=== PATIENT | female | born 1960 | race Caucasian/White ===

== ENCOUNTER 2018-03-31 23:25 | Emergency (ER) | payer OTHER, SELFPAY ==
[2018-03-31 23:26] VITALS: PULSE 68; RESP 18; TEMP 35.6; O2SAT 99; BMI 36.6
--- NOTE | 2018-03-31 23:29 | NURSING ---
PT ASKED TO BE SEATED IN THE WAITING ROOM AFTER THIS RN FINISHED TRIAGING HER TO WHICH SHE REPLIED SHE DOES NOT WANT TO WAIT TO BE SEEN. PT STATES SHE IS LEAVING
== END 2018-03-31 23:30 | disposition left against medical advice (07) ==
LOC: ED 04-01 00:14
PROVIDERS: Emergency Provider Emergency Medicine
DX: R69 Illness, unspecified (principal)

== ENCOUNTER 2021-06-29 17:51 | Inpatient (IN) | payer MEDICAID, SELFPAY ==
[2021-06-29] VITALS (7 sets, daily range): BP systolic 110–127; BP diastolic 77–99; PULSE 104–113; RESP 22–34; TEMP 36.6–37.2; O2SAT 91–97; BMI 41.5
--- NOTE | 2021-06-29 18:00 | EDS_ITS ---
HPI History of Present Illness Chief Complaint: Shortness of Breath Informant: patient and EMS Narrative Narrative: Patient is a 60-year-old male with diagnosis of Covid 14 days ago presenting with confusion and hypoxia. EMS arrived to the patient's house no she was confused, cyanotic and 88% on room air. She is placed on a nonrebreather and did have improvement of her symptoms. Patient states she is been feeling more short of breath lately. She did not have her Covid vaccine. She denies any chest pain. She denies any other acute complaints at this time. [facility] Medical History (Updated 06/29/21 @ 23:[address] Dara Uribe, DO) Non-smoker Obesity Home Medications naproxen 500 mg PO BID PRN #20 tab 09/15/15 [Rx Last Taken Unknown] Allergy/AdvReac Type Severity Reaction Status Date / Time No Known Allergies Allergy Verified 06/29/21 17:57 Family History Other Diabetes Social History Smoking Status: Never smoker ROS ROS ED ROS Narrative Review of systems is limited secondary to patient's confusion Respiratory/Chest Respiratory/Chest: Reports dyspnea EXAM Physical Exam Const Vital Signs: 06/29/21 17:52 06/29/21 18:00 06/29/21 18:23 Temperature 97.8 F Temperature Source Oral Pulse Rate 113 H 111 H Respiratory Rate 29 H 33 H Respiratory Effort Short of Breath Labored Accessory Muscle Use Respiratory Depth Shallow Respiratory Pattern Tachypnea Blood Pressure 119/99 H 127/97 H Blood Pressure Mean 105 107 Pulse Ox 95 95 91 Oxygen Delivery Method Non-Rebreather Venturi Mask Venturi Mask Oxygen Flow Rate (L/min) 12 50 Fraction of Inspired Oxygen (FIO2) 50 06/29/21 19:52 06/29/21 19:53 06/29/21 20:37 Temperature 98.9 F 98.0 F Temperature Source Temporal Oral Pulse Rate 107 H 104 H 105 H Respiratory Rate 34 H 34 H 28 H Respiratory Effort Respiratory Depth Respiratory Pattern Blood Pressure 110/77 110/77 118/82 H Blood Pressure Mean 88 88 94 Pulse Ox 97 97 96 Oxygen Delivery Method Non-Rebreather Non-Rebreather Non-Rebreather Oxygen Flow Rate (L/min) 15 15 15 Fraction of Inspired Oxygen (FIO2) Positive well nourished and well developed General Appearance ED: well developed HEENT Reports moist mucous membranes atraumatic Eyes PERRL and EOMs intact bilaterally Neck supple and no JVD Resp normal respiratory effort Auscultation: diminished lung sounds diffuse Cardio regular rate, regular rhythm and no murmurs GI non-tender and non-distended Palpation: soft Back/Spine normal to inspection Extremity normal to inspection Neuro oriented x3 Sensorium / Orientation: alert and confused Skin Lesions: no lesions Rashes: no rashes MDM MDM MDM Narrative Medical decision making narrative: Patient evaluated for hypoxia and cyanosis as well as confusion in the setting of COVID-19 infection. She had symptoms for 2 weeks. She did not have her Covid vaccine. She does not wear oxygen normally. On arrival patient is requiring 50% FiO2 to maintain O2 saturation of 95% but she does feel improved on oxygen. Her work-up is remarkable for an elevated lactate as well as a leukocytosis of 14.0. I suspect this is all reactive and associated with her hypoxic state prior to arrival and not from a bacterial infection, therefore antibiotics are not given. D-dimer is significantly elevated however patient appears to have an LATOYA with a creatinine of 2.18. We will not have any prior labs to compare to. Patient will be placed on heparin drip empirically and plan for CTA to rule out PE in the morning if kidney function improves. ABG obtained after patient's arrival shows hypoxia and mild respiratory alkalosis but no hypercapnia. Patient inflammatory markers are elevated including her CRP, LDH and fibrinogen. She will be admitted for further respiratory monitoring and treatment. She is given 1st dose of Decadron in the emergency room. Patient is agreeable with this plan of care. Lab Data Attestation: I reviewed the patient's lab results. Labs: Laboratory Results - last 24 hr 06/29/21 06/29/21 06/29/21 18:05 18:05 18:05 WBC 14.0 H RBC 6.24 H Hgb 17.6 H Hct 54.3 H MCV 87.0 MCH 28.2 MCHC 32.4 RDW Std Deviation 43.5 RDW Coeff of Alis 13.6 Plt Count 188 MPV 11.2 Immature Gran % (Auto) 4.100 H Neut % (Auto) 79.7 H Lymph % (Auto) 5.8 L [place] % (Auto) 8.9 Eos % (Auto) 0.6 Baso % (Auto) 0.9 Absolute Neuts (auto) 11.2 H Absolute Lymphs (auto) 0.82 L Nucleated RBC % 0.7 PT INR APTT Fibrinogen 462 H D-Dimer Quant (PE/DVT) > 20.00 H* Sodium 144 Potassium 3.5 Chloride 104 Carbon Dioxide 29.0 Anion Gap 11 BUN 55 H Creatinine 2.18 H Estim Creat Clear Calc 23.11 Est GFR (MDRD) Af Amer 29 L Est GFR (MDRD) Non-Af 24 L BUN/Creatinine Ratio 25.2 H Glucose 199 H Lactic Acid Calcium 9.1 Total Bilirubin 1.50 H AST 26 ALT 53 Alkaline Phosphatase 85 Lactate Dehydrogenase 432 H Total Creatine Kinase 315 H Troponin I High Sens 8 C-React Prot Ext Range 171.00 H Total Protein 8.0 Albumin 3.0 L Globulin 5.0 H Albumin/Globulin Ratio 0.6 L Procalcitonin 06/29/21 06/29/21 06/29/21 18:05 18:05 18:05 WBC RBC Hgb Hct MCV MCH MCHC RDW Std Deviation RDW Coeff of Alis Plt Count MPV Immature Gran % (Auto) Neut % (Auto) Lymph % (Auto) [place] % (Auto) Eos % (Auto) Baso % (Auto) Absolute Neuts (auto) Absolute Lymphs (auto) Nucleated RBC % PT 15.1 H INR 1.3 APTT 24.6 Fibrinogen D-Dimer Quant (PE/DVT) Sodium Potassium Chloride Carbon Dioxide Anion Gap BUN Creatinine Estim Creat Clear Calc Est GFR (MDRD) Af Amer Est GFR (MDRD) Non-Af BUN/Creatinine Ratio Glucose Lactic Acid 3.9 H* Calcium Total Bilirubin AST ALT Alkaline Phosphatase Lactate Dehydrogenase Total Creatine Kinase Troponin I High Sens C-React Prot Ext Range Total Protein Albumin Globulin Albumin/Globulin Ratio Procalcitonin 0.41 H ABG Data ABG results: ABG 06/29/21 18:34 Specimen Type ART Sample Site L Radial pH 7.53 H Bicarbonate Actual 25.4 Total CO2 26 Base Excess 3 H O2 Saturation 88 L O2 % 50 ABG pCO2 30.3 L ABG pO2 47 L Sarthak Test Positive O2 Delivery Device Venti Mask Radiography Chest X-Ray - ED: 1 View, Read by ED Physician, Read by Radiologist and - (Multifocal infiltrate) Diagnostic Testing: Radiology Impression Chest X-Ray 06/29/21 18:43 IMPRESSION: Findings which may be consistent with Covid 19 pneumonia more severe in the left lung Electronically Signed: Tuan Gonzalez MD at 19:36 EDT , Service support , Rhythm Strip Rhythm Strip: Sinus Tach Rate: 110 Ectopy: None EKG Initial EKG: Attestation: I personally reviewed and interpreted this EKG as follows: Interpretation: Sinus Tachycardia Comments: Sinus tachycardia at a rate of 110 Normal axis Normal intervals No ACS Questionable ST depression and 1 and aVL Discharge Plan Triage Chief Complaint: Shortness of Breath ED Provider: Dara Uribe Dx/Rx/DC Orders Clinical Impression: COVID-19, SARS (severe acute respiratory syndrome), Acute hypoxemic respiratory failure, Elevated serum creatinine Primary Care Provider: Care Physician,No Primary Disposition Disposition: Acute Care [facility]
[2021-06-29 18:22] LABS: Absolute Lymphocyte Count 0.82 X10^3/uL (0.83-4.51); Absolute Neutrophil Count 11.2 X10^3/uL (2.0-7.7); Basophil# 0.12 X10^3/uL; Basophil% 0.9 % (0-1); Eosinophil# 0.09 X10^3/uL; Eosinophils% 0.6 % (0-5); Hematocrit 54.3 % (37-47); Hemoglobin 17.6 g/dL (12.0-15.0); Lymphocyte # 0.82 X10^3/ul (0.83-4.51); Lymphocyte % 5.8 % (19-41); Mean Corp Hgb Conc 32.4 g/dL (32-36); Mean Corpuscular Hgb 28.2 pg (27.0-32.0); Mean Platelet Vol. 11.2 fl (6.2-12.0); Monocyte# 1.25 X10^3/uL; Monocyte% 8.9 % (0-10); NRBC Flagged by Analyzer 0.7 % (0-5); Neutrophil # 11.17 X10^3/uL (2.7-7.7); Neutrophil % 79.7 % (47-70); Platelet Count 188 K/mm3 (150-450); RBC Distribution Width CV 13.6 % (11.6-14.6); RBC Distribution Width SD 43.5 fl (35.1-43.9); Red Blood Count 6.24 M/mm3 (4.2-5.4)
[2021-06-29 18:41] LABS: Allen Test Positive; Base Excess 3 mmol/L (-2 to +2); Bicarbonate 25.4 mmol/L (22-26); Blood Gas Specimen Type ART; FI02 50; O2 Delivery Device Venti Mask; PO2 47 mmHG (75-100); SITE L Radial; SO2 88 % (95-99); Total Carbon Dioxide 26 mmol/L; pCO2 30.3 mmHg (35-45); pH 7.53 (7.35-7.45)
[2021-06-29 18:41] LABS: ALB/GLOB Ratio 0.6 RATIO (0.9-2.4); AST(SGOT) 26 U/L (15-37); Alanine Aminotransfer ALT/SGPT 53 U/L (13-56); Alkaline Phosphatase 85 U/L (45-117); Anion Gap 11 (5-15); BUN 55 mg/dL (7-18); BUN/Creat Ratio 25.2 RATIO (10-20); CPK Total, Creatine Kinase 315 U/L (26-192); Calcium,Total 9.1 mg/dL (8.5-10.1); Chloride 104 mmol/L (98-107); Creatinine, Serum 2.18 mg/dL (0.55-1.02); EST Glomerular Filtration Rate 24 mL/min (>60); Est Glom Filt Rate - Afr Amer 29 mL/min (>60); Estimated Creatinine Clearance 23.11 ml/min; Glucose 199 mg/dL (74-106); LDH 432 U/L (84-246); Potassium 3.5 mmol/L (3.5-5.1); Sodium Level 144 mmol/L (136-145); Troponin-I HS 8 pg/mL (3.0-54.0)
--- NOTE | 2021-06-29 18:43 | RAD_ITS ---
STUDY: X-RAY CHEST REASON FOR EXAM: Female, 60 years old. cough TECHNIQUE: AP portable COMPARISON: 10/25/2012. FINDINGS: Less than optimal inspiratory effort is seen. There is diffuse interstitial thickening seen bilaterally with patchy areas of increased density in both upper and lower lobes more severe in the left lung peripherally suspicious for atypical viral pneumonia.. There is no demonstrated pleural abnormality. Normal size heart. Normal mediastinum and cecil. Normal visualized pulmonary arteries. Normal visualized aortic arch and descending thoracic aorta. Dorsal spine demonstrates degenerative change Normal visualized ribs, clavicles, and shoulders. There is no demonstrated abnormality of the visualized soft tissue structures of the upper abdomen. RAD/Chest 1 View (Portable) IMPRESSION: Findings which may be consistent with Covid 19 pneumonia more severe in the left lung Electronically Signed: Tuan Gonzalez MD at 19:36 EDT , Service support ,
[2021-06-29 18:52] LABS: Lactic Acid 3.9 mmol/L (0.4-1.9)
[2021-06-29 18:54] LABS: Fibrinogen 462 mg/dl (203-444)
[2021-06-29 19:02] LABS: Procalcitonin 0.41 ng/mL (0.00-0.09)
[2021-06-29 20:08] LABS: D-Dimer Quantitative (DVT/PE) > 20.00 FEU/ug/m (0.27-0.49)
--- NOTE | 2021-06-29 20:30 | EKG12_ITS ---
Test Reason : GENERAL ILLNESS Blood Pressure : / mmHG Vent. Rate : 110 BPM Atrial Rate : 110 BPM P-R Int : 118 ms QRS Dur : 078 ms QT Int : 344 ms P-R-T Axes : -06 -13 070 degrees QTc Int : 465 ms Sinus tachycardia Nonspecific ST abnormality Poor R wave progression Abnormal ECG Confirmed by KRISSY BETHEA, TOYIN ([id number]), commissioning editor STANTON QUIROZ ([id number]) on 06/30/2021 1:14:57 PM Referred By: COLT/JAROD Confirmed By:TOYIN REY MD
[2021-06-29] MEDS: dexAMETHasone 10 MG/ML Vial 6 MG PO.IVFORM (20:34)
--- NOTE | 2021-06-29 21:21 | HP.PCM.HOS_ITS ---
HPI - General General Date of Admission: 06/29/21 HPI Narrative PRAKASH LEMUS, is a 60 F with a significant history of obesity who presents to the emergency department with progressively worsening shortness of breath that started about 2 weeks ago. Patient was diagnosed with Covid 14 days ago. Associated with her symptoms is fatigue; weakness; dysgeusia; and anosmia. At the emergent department patient required nonrebreather mask because of hypoxia. She was later transition to high flow oxygen [facility] Medical History Non-smoker Obesity Home Medications naproxen 500 mg PO BID PRN #20 tab 09/15/15 [Rx Last Taken Unknown] Allergy/AdvReac Type Severity Reaction Status Date / Time No Known Allergies Allergy Verified 06/29/21 17:57 Family History Other Diabetes no surgical history Social History Smoking Status: Never smoker ROS ROS Narrative Constitutional: Reports anorexia. Denies change in weight Eyes: Denies blurry vision, change in eye color, change in vision, discharge from eye(s), double vision, erythema, eye pain, loss of vision or other HEENT: Denies abnormal hearing, dysphagia, ear pain, epistaxis, headache(s), hearing loss, nasal congestion, nasal discharge, post nasal drip, sinus pressure, sore throat or other Cardiovascular: Denies chest pain or palpitations. Respiratory/Chest: Reports dry cough cough, reports shortness of breath. Denies phlegm production. Gastrointestinal: Denies abdominal pain, coffee ground emesis, constipation, diarrhea, dyspepsia, hematemesis, hematochezia, loose stools, melena, nausea, vomiting or other Genitourinary: Denies burning urination, difficulty urinating, dysuria, hematuria, nocturia, urinary frequency, urinary hesitancy, urinary incontinence, urinary urgency or other Musculoskeletal: Denies arthralgias, back pain, joint pain, joint stiffness, joint swelling, myalgias, neck pain or other Neurologic: Reportedly had confusion. Denies abnormal gait, abnormal speech, disequilibrium, dizziness, focal weakness, headache(s), numbness, paresthesias, seizure-like activity, seizures, syncope, tingling, tremor(s) or other Psychiatric: Denies anxiety, depression, homicidal ideation, suicidal ideation or other Endocrinology: Denies change in body appearance, cold intolerance, excessive sweating, heat intolerance, polydipsia, polyuria or other Hematologic/Lymphatic: Denies anemia, easy bleeding, easy bruising, lymphadenopathy or other Integumentary: Denies rashes Allergic/Immunologic: Denies rhinitis, hives, eczema, asthma or other Vital Signs Vital Signs Vital Signs: 06/29/21 17:52 06/29/21 18:00 06/29/21 18:23 Temperature 97.8 F Temperature Source Oral Pulse Rate 113 H 111 H Respiratory Rate 29 H 33 H Respiratory Effort Short of Breath Labored Accessory Muscle Use Respiratory Depth Shallow Respiratory Pattern Tachypnea Blood Pressure 119/99 H 127/97 H Blood Pressure Mean 105 107 Pulse Ox 95 95 91 Oxygen Delivery Method Non-Rebreather Venturi Mask Venturi Mask Oxygen Flow Rate (L/min) 12 50 Fraction of Inspired Oxygen (FIO2) 50 06/29/21 19:52 06/29/21 19:53 06/29/21 20:37 Temperature 98.9 F 98.0 F Temperature Source Temporal Oral Pulse Rate 107 H 104 H 105 H Respiratory Rate 34 H 34 H 28 H Respiratory Effort Respiratory Depth Respiratory Pattern Blood Pressure 110/77 110/77 118/82 H Blood Pressure Mean 88 88 94 Pulse Ox 97 97 96 Oxygen Delivery Method Non-Rebreather Non-Rebreather Non-Rebreather Oxygen Flow Rate (L/min) 15 15 15 Fraction of Inspired Oxygen (FIO2) Weight Weight: 109.8 kg Body Mass Index (BMI) 41.5 Physical Exam Narrative Physical exam: General: Well-nourished, well-developed. Head: Normocephalic, atraumatic, no tenderness Eyes: PERRLA, EOMI ENT, no trauma, moist mucous membranes, no rhinorrhea Neck: Nontender, full range of motion, no spinal tenderness, deformities, step- off CVS: Tachycardia. . S1-S2 present. No murmur, gallop or rub. Respiratory : Tachypnea. Using accessory muscles of respiration. Conversational dyspnea. Rales. No wheezing Abdomen: Soft, nontender, nondistended, normal bowel sounds, no masses : Deferred Back: Nontender, no CVA tenderness, no midline spinal tenderness, deformities, step-offs Extremities: Nontender full range of motion, no trauma Skin: Normal color, no trauma, abrasions Neuro: Alert, oriented, cranial nerves II through XII grossly intact. Psychiatry: Appears depressed. Results Lab / Micro Data Result Diagrams: 06/29/21 18:05 06/29/21 18:05 Labs: Laboratory Results - last 24 hr 06/29/21 18:05: WBC 14.0 H, RBC 6.24 H, Hgb 17.6 H, Hct 54.3 H, MCV 87.0, MCH 28.2, MCHC 32.4, RDW Std Deviation 43.5, RDW Coeff of Alis 13.6, Plt Count 188, MPV 11.2, Immature Gran % (Auto) 4.100 H, Neut % (Auto) 79.7 H, Lymph % (Auto) 5.8 L, [place] % (Auto) 8.9, Eos % (Auto) 0.6, Baso % (Auto) 0.9, Absolute Neuts (auto) 11.2 H, Absolute Lymphs (auto) 0.82 L, Nucleated RBC % 0.7 06/29/21 18:05: Fibrinogen 462 H, D-Dimer Quant (PE/DVT) > 20.00 H* 06/29/21 18:05: Sodium 144, Potassium 3.5, Chloride 104, Carbon Dioxide 29.0, Anion Gap 11, BUN 55 H, Creatinine 2.18 H, Estim Creat Clear Calc 23.11, Est GFR (MDRD) Af Amer 29 L, Est GFR (MDRD) Non-Af 24 L, BUN/Creatinine Ratio 25.2 H, Glucose 199 H, Calcium 9.1, Total Bilirubin 1.50 H, AST 26, ALT 53, Alkaline Phosphatase 85, Lactate Dehydrogenase 432 H, Total Creatine Kinase 315 H, Troponin I High Sens 8, C-React Prot Ext Range 171.00 H, Total Protein 8.0, Albumin 3.0 L, Globulin 5.0 H, Albumin/Globulin Ratio 0.6 L 06/29/21 18:05: Lactic Acid 3.9 H* 06/29/21 18:05: Procalcitonin 0.41 H ABG Data ABG results: ABG 06/29/21 18:34 Specimen Type ART Sample Site L Radial pH 7.53 H Bicarbonate Actual 25.4 Total CO2 26 Base Excess 3 H O2 Saturation 88 L O2 % 50 ABG pCO2 30.3 L ABG pO2 47 L Sarthak Test Positive O2 Delivery Device Venti Mask Radiology Impression Chest X-Ray 06/29/21 18:43 IMPRESSION: Findings which may be consistent with Covid 19 pneumonia more severe in the left lung Electronically Signed: Tuan Gonzalez MD at 19:36 EDT , Service support , Assessment & Plan Assessment/Plan (1) COVID-19: (2) SARS (severe acute respiratory syndrome): (3) Acute hypoxemic respiratory failure: PLAN: Acute hypoxemic respiratory failure secondary to SARS- COV 2 Patient required nonrebreather mask, Venturi mask and later high flow oxygen at emergency department. Continue oxygen Supplementation to keep oxygen saturation more than 92%. Review of community records show that on 06/15/2021 patient had a positive Covid PCR with [facility]. Positive coronavirus test outpatient. Impression of chest x-ray by radiologist: []. Actual chest x-ray image was independently interpreted. I agree with radiologist interpretation. Dimer was elevated at [ ]. Follow-up chest CTA showed : []. Procalcitonin was []. [Received] dexamethasone IV at emergency department. Discussed with patient that dexamethasone p.o. will be ordered and also she will be started on [remdesivir]. Her liver enzyme is []. Discussed adverse effects of medication with patient. Patient was notified that if her liver enzymes significantly increase her remdesivir will be discontinued. Tylenol for fever [Mucinex] ordered LATOYA Patient denies any history of kidney disease. No old creatinine on file. Lookup of committee records did not show any creatinine. Will treat as LATOYA. Gentle IV hydration. Get urine sodium and urine creatinine. Avoid neph rotoxic's. Trend BMP. Elevated D-dimer We will put patient on heparin drip. Will get ultrasound of bilateral lower extremities DVT prophylaxis Patient placed on heparin drip secondary to elevated D-dimer. Charges/Coding Visit Charges Inpatient E&M: 70602 Init Hosp L3
[2021-06-29 21:38] LABS: International Normalized Ratio 1.3; Prothrombin Time (Protime)PT. 15.1 SECONDS (11.7-14.9)
[2021-06-29 21:39] LABS: Partial Thromboplast Time 24.6 Seconds (24.1-36.2)
[2021-06-29 22:17] LABS: Reflex Lactate? Y
[2021-06-29 23:45] LABS: Lactic Acid 3.1 mmol/L (0.4-1.9)
[2021-06-30] VITALS (17 sets, daily range): BP systolic 78–138; BP diastolic 56–113; PULSE 101–164; RESP 14–52; TEMP 36.6–36.9; O2SAT 75–100; BMI 40.1
[2021-06-30] MEDS: HEPARIN/D5w 25,000 UNITS 25,000 UNITS/250 ML IV.SOLN. 15 UNITS IV (01:46)
[2021-06-30] MEDS: 0.9% Normal Saline 1,000 ML 60 ML IV (01:47)
[2021-06-30 05:20] LABS: Absolute Lymphocyte Count 1.12 X10^3/uL (0.83-4.51); Absolute Neutrophil Count 15.4 X10^3/uL (2.0-7.7); Basophil# 0.17 X10^3/uL; Basophil% 0.9 % (0-1); Eosinophil# 0.01 X10^3/uL; Eosinophils% 0.1 % (0-5); Hematocrit 55.3 % (37-47); Hemoglobin 17.8 g/dL (12.0-15.0); Lymphocyte # 1.12 X10^3/ul (0.83-4.51); Mean Corp Hgb Conc 32.2 g/dL (32-36); Mean Corpuscular Hgb 28.3 pg (27.0-32.0); Mean Corpuscular Volume 87.9 fL (81-99); Monocyte# 1.29 X10^3/uL; Monocyte% 6.9 % (0-10); NRBC Flagged by Analyzer 0.4 % (0-5); Neutrophil # 15.42 X10^3/uL (2.7-7.7); Neutrophil % 81.9 % (47-70); Platelet Count 173 K/mm3 (150-450); RBC Distribution Width CV 13.8 % (11.6-14.6); RBC Distribution Width SD 44.1 fl (35.1-43.9); Red Blood Count 6.29 M/mm3 (4.2-5.4); White Blood Count 18.8 K/mm3 (4.4-11.0)
[2021-06-30 05:49] LABS: ALB/GLOB Ratio 0.6 RATIO (0.9-2.4); AST(SGOT) 26 U/L (15-37); Alanine Aminotransfer ALT/SGPT 49 U/L (13-56); Albumin, Serum 2.9 g/dL (3.2-5.0); Alkaline Phosphatase 88 U/L (45-117); Anion Gap 16 (5-15); BUN 70 mg/dL (7-18); BUN/Creat Ratio 23.3 RATIO (10-20); Calcium,Total 9.2 mg/dL (8.5-10.1); Chloride 107 mmol/L (98-107); EST Glomerular Filtration Rate 17 mL/min (>60); Est Glom Filt Rate - Afr Amer 20 mL/min (>60); Estimated Creatinine Clearance 16.79 ml/min; Globulin 5.1 g/dL (2.2-4.2); Glucose 257 mg/dL (74-106); Potassium 4.1 mmol/L (3.5-5.1); Sodium Level 142 mmol/L (136-145)
[2021-06-30 05:58] LABS: Procalcitonin 0.83 ng/mL (0.00-0.09)
[2021-06-30 08:00] LABS: Partial Thromboplast Time 23.1 Seconds (24.1-36.2)
[2021-06-30] MEDS: dexAMETHasone 2 MG TABLET 6 MG PO (08:28)
[2021-06-30] MEDS: Heparin Injection (Vial) 5,000 UNIT/ML VIAL IV (08:28)
[2021-06-30] MEDS: Morphine 2 MG/ML Syringe IV (10:28)
--- NOTE | 2021-06-30 11:48 | NURSING ---
09: Noted change in pt status. Pt on 15 L high flow, sats in the low 90s, RR in the 30-40s, HR in the 130-140s. Pt very restless and anxious, increased work of breathing. Dr. Gutiérrez notified, contact respiratory to trial airvo. Pt anxious and attempting to pull off nasal cannula, RR in 40-50s. Dr. Gutiérrez to bedside, will attempt BIPAP d/t work of breathing. Pt placed on BIPAP for short while, RR still in the 40s. Pt unable to tolerate BIPAP d/t anxiety and restlessness. Dr. Gutiérrez notified of restlessness and anxiety, came to bedside to assess pt, and gave verbal order for morphine IV 2-4 mg q2 for comfort. Morphine given, see DEC. Pt on 15 L nasal cannula. Daughter in to bedside w/ pt. Pt resting comfortably in bed. 1100: Tele alarming vtach, unable to obtain BP or pulse ox reading. No respirations noted. Confirmed w/ A. TORIBIO Kumari absence of heart tones and lung sounds. Notified Dr. Gutiérrez, family at bedside.
--- NOTE | 2021-06-30 20:40 | PCM.DEATH ---
Preliminary Cause of Preliminary Cause of Preliminary Cause of : Asystole secondary to acute hypoxic respiratory failure from COVID-19 pneumonia Date of Admission: 06/29/21 Principle Diagnosis Problem List: Active and Suspected Problems (Updated 06/29/21 @ 23:[address] Dara Uribe, DO) Elevated serum creatinine (Acute) Acute hypoxemic respiratory failure (Acute) SARS (severe acute respiratory syndrome) (Acute) COVID-19 (Acute) Hospital Course This 60-year-old white female was admitted to [facility] after being seen in the emergency room at [facility] due to complaints of shortness of breath. Patient been diagnosed with Covid 2 weeks prior. EMS arrived to the patient's house to bring her to the emergency room at [facility] due to confusion, she was noted to be cyanotic and had a pulse ox of 88% on room air. Patient was placed on nonrebreather in the emergency room with improvement of her symptoms, she denied any chest pain. Labs obtained in emergency room revealed an elevated lactic acid, white blood cell count was elevated, D-dimer was significantly elevated and creatinine was noted to be elevated also. Patient was placed on a heparin drip, she was given Decadron in the emergency room and admitted to PCU. Patient status deteriorated after hospitalization, she became more confused and patient's family requested a DNR CC arrest without intubation. Patient was medicated for comfort measures and patient subsequently on 06/30/2021-she was noted to be without spontaneous respirations and without heartbeat, pupils were fixed on exam. Assessment & Plan Assessment/Plan (1) COVID-19: PLAN: Final diagnosis: #1 COVID-19 pneumonia #2 acute hypoxic respiratory failure secondary to COVID-19 pneumonia resulting in #3 acute kidney injury #4 morbid obesity #5 metabolic encephalopathy secondary to COVID-19 pneumonia and acute hypoxic respiratory failure Is Visit Charges Inpatient E&M: 65100 Disch Hosp
== END 2021-06-30 11:00 | DRG 137 ==
LOC: ED 20:52 → PCU 23:11
PROVIDERS: Admitting Provider Hospitalist; Emergency Provider Emergency Medicine; Visit Provider Internal Medicine
DX: U07.1 COVID-19 (principal); J96.01 Acute respiratory failure with hypoxia; J12.82 Pneumonia due to coronavirus disease 2019; Z68.41 Body mass index [BMI] 40.0-44.9, adult; N17.9 Acute kidney failure, unspecified; I46.9 Cardiac arrest, cause unspecified; E66.01 Morbid (severe) obesity due to excess calories; G93.41 Metabolic encephalopathy; Z66 Do not resuscitate
CPT/HCPCS: 36415; 36600; 71045; 80053; 82550; 82803; 83605; 83615; 84145; 84484; 85025; 85379; 85384; 85610; 85730; 86140; 87040; 87633; 93005; 99285; J7030; A4216